=== PATIENT | male | born 1985 | race Caucasian/White ===

== ENCOUNTER → 2016-12-06 | Outpatient (CLI) | payer BC ==
--- NOTE | 2016-12-06 09:22 | RAD ---
KUB, 12/06/2016: History: Kidney stones Comparison is made to an outside study from 12/03/2016. There is a persistent 7 mm radiopacity projected along in the right paraspinous region at L2-3 level compatible with a ureteral calculus. It is unchanged in position. Faint tiny intrarenal calculi are again noted bilaterally. There is a 4 mm radiopacity projected over the right side of the lower sacrum which is also unchanged. The previous CT study from 11/27/2016 showed that this represents a distal ureteral calculus. The abdominal gas pattern is unremarkable. There is no evidence of organomegaly. IMPRESSION: 1. Unchanged proximal right ureteral calculus at the L2-3 level. 2. Unchanged distal right ureteral calculus. 3. Tiny bilateral intrarenal calculi.
== END | disposition home or self-care (01) ==
LOC: RAD 08:51
PROVIDERS: ATTEND Nurse Practitioner Occupational Health
DX: N20.0 Calculus of kidney (principal); N20.1 Calculus of ureter
CPT/HCPCS: 74000